=== PATIENT | female | born 1965 | race Two or more races ===

== ENCOUNTER → 2024-07-30 | Outpatient (CLI) | payer MEDICAID, SELFPAY ==
--- NOTE | 2024-07-30 10:15 | XR_ITS ---
Examination: Screening digital mammography, bilateral Computer aided detection 3-D breast Tomosynthesis, bilateral Date and time of exam: July 30, 2024 0937 hours Compared to mammograms dating to September 01, 2015 Indication: Screening Technique: Nonmagnified MLO, CC views of the breasts to been obtained, reconstructed from 3-D Tomosynthesis images. R2 computer aided detection program utilized for evaluation of suspicious masses and/or abnormal calcifications. 3-D Tomosynthesis images obtained. Findings: The breasts are heterogeneously dense, which may obscure small masses Microclip in the left breast 14 mm nodule inner upper left breast noted on prior exams Impression: BI-RADS Category 0: Incomplete: Need additional imaging evaluation Recommend follow-up tomographic views of the nodule inner upper left breast and repeat left breast sonography to compare with the left breast sonogram May 22, 2017
== END | disposition home or self-care (01) ==
LOC: CDIM 09:28
PROVIDERS: Referring Provider Nurse Practitioner Family; Visit Provider Nurse Practitioner Family
DX: Z12.31 Encounter for screening mammogram for malignant neoplasm of breast (principal); R92.8 Other abnormal and inconclusive findings on diagnostic imaging of breast
CPT/HCPCS: 77063; 77067